=== PATIENT | male | born 1995 | race Hispanic/Latino ===

== ENCOUNTER 2018-03-09 21:46 | Emergency (ER) | payer BC ==
[2018-03-09 21:49] VITALS: BP 133/81; PULSE 100; RESP 18; TEMP 97.9; O2SAT 98
--- NOTE | 2018-03-09 22:04 | ED PDOC ---
HPI: Psych/Substance Abuse Time Seen by Provider: 03/09/18 21:51 Chief Complaint (Nursing): Alcohol Ingestion Chief Complaint (Provider): Alcohol Ingestion History Per: Patient History/Exam Limitations: no limitations Onset/Duration Of Symptoms: Mins Current Symptoms Are (Timing): Still Present Modifying Factor(s): Alcohol Additional Complaint(s): 22 y/o male with a PMHx of ulcerative colitis presents to the ED complaining of vomiting. Patient admits to drinking alcohol excessively. [place], he began vomiting intractably and was brought to the ER for futher evaluation. Denies drugs, abdominal pain, hematemesis and hematochezia. PMD: Giselle Avina Past Medical History Reviewed: Historical Data, Nursing Documentation, Vital Signs Vital Signs: Last Vital Signs Temp 97.9 F 03/09/18 21:47 Pulse 100 H 03/09/18 21:47 Resp 18 03/09/18 21:47 BP 133/81 03/09/18 21:47 Pulse Ox 98 03/09/18 21:47 - Medical History Other PMH: ulcerative colitis - Surgical History Surgical History: No Surg Hx - Family History Family History: States: Unknown Family Hx - Social History Current smoker - smoking cessation education provided: No Alcohol: Social Drugs: Denies - Home Medications Home Medications: Ambulatory Orders Medication Instructions Recorded Omeprazole Magnesium [Prilosec Otc] 20 mg PO DAILY #10 tcp 03/09/18 Ondansetron ODT [Zofran ODT] 1 odt PO Q6 PRN #20 odt 03/09/18 - Allergies Allergies/Adverse Reactions: Allergies Allergy/AdvReac Type Severity Reaction Status Date / Time No Known Allergies Allergy Verified 03/09/18 21:47 Review of Systems ROS Statement: Except As Marked, All Systems Reviewed And Found Negative Gastrointestinal: Positive for: Vomiting. Negative for: Abdominal Pain, Hematochezia, Hematemesis Psych: Positive for: Other (EtOH intoxication) Physical Exam - Reviewed Nursing Documentation Reviewed: Yes Vital Signs Reviewed: Yes - Physical Exam Appears: Positive for: Non-toxic, In Acute Distress (Acute gastrointestinal distress and malodorous) Head Exam: Positive for: ATRAUMATIC, NORMOCEPHALIC Skin: Positive for: Warm, Dry Eye Exam: Positive for: EOMI, PERRL, Conjunctival injection ENT: Negative for: Pharyngeal Erythema, Tonsillar Exudate Neck: Positive for: Painless ROM, Supple Cardiovascular/Chest: Positive for: Regular Rate, Rhythm. Negative for: Murmur Respiratory: Positive for: Normal Breath Sounds. Negative for: Wheezing Gastrointestinal/Abdominal: Positive for: Normal Exam, Soft. Negative for: Tenderness, Mass, Guarding, Rebound Back: Positive for: Normal Inspection. Negative for: Muscle Spasm Extremity: Positive for: Normal ROM. Negative for: Deformity Lymphatic: Negative for: Adenopathy Neurologic/Psych: Positive for: Alert, Oriented (x3), Gait (steady). Negative for: Motor/Sensory Deficits - ECG O2 Sat by Pulse Oximetry: 98 (RA) Pulse Ox Interpretation: Normal Medical Decision Making Medical Decision Making: Time: 2156 Impression: Acute alcohol induced gastritis Plan: -- Zofran Inj 4 mg IM --PO challenge 2300 Pt tolerated PO. stable for dc. Scribe Attestation: Documented by Carrie Ledezma acting as a scribe for Dr. Henny Xiong. Provider Scribe Attestation: All medical record entries made by the Scribe were at my direction and personally dictated by me. I have reviewed the chart and agree that the record accurately reflects my personal performance of the history, physical exam, medical decision making, and the department course for this patient. I have also personally directed, reviewed, and agree with the discharge instructions and disposition. Disposition - Clinical Impression Clinical Impression: Acute alcoholic gastritis - Disposition Disposition: Routine/Home Disposition Time: 23:00 Condition: STABLE Additional Instructions: DO NOT DRINK ALCOHOL. YOU ARE UNDERAGE AND IT IS ILLEGAL. FOLLOW UP WITH YOUR DOCTOR THIS WEEK. Prescriptions: Omeprazole Magnesium [Prilosec Otc] 20 mg PO DAILY #10 tcp Ondansetron ODT [Zofran ODT] 1 odt PO Q6 PRN #20 odt PRN Reason: Nausea/Vomiting Instructions: Alcohol Use - When Is Drinking a Problem?, Nausea and Vomiting, Adult, Gastritis (DC) Forms: [employer] ([place])
== END 2018-03-09 23:07 | disposition home or self-care (01) ==
LOC: H.ER 21:46
DX: K29.20 Alcoholic gastritis without bleeding (principal)
CPT/HCPCS: 96372; 99283; J2405